=== PATIENT | male | born 1975 | race Caucasian/White ===

== ENCOUNTER → 2016-11-15 | Outpatient (CLI) | payer MEDICAID ==
--- NOTE | 2016-11-15 12:11 | XCELERA REPORT ---
[address] [address] Lower Extremity Venous Evaluation Name: EVELYN DAVIS Age: 41 yrs Gender: Male : 1975 Patient Status: Outpatient Patient Location: Study Date: 11/15/2016 09:13 AM Procedure: Color flow and duplex imaging of the veins of the right lower extremity as well as the left Common Femoral vein. Reason For Study: RLE PAIN Ordering Physician: BRIAN RAY Performed By: Priscilla Steiner Right Sided Venous Evaluation Normal vessel filling wall to wall, compression and augmentation as well as Colour flow down to the infrageniculate veins. Left Sided Venous Evaluation The left common femoral vein is fully compressible. Spontaneous and phasic flow is present in the left common femoral vein. Interpretation Summary No duplex evidence of DVT or obstruction in the right lower extremity nor in the left Common Femoral vein. : BRIAN RAY > Dada Haque
== END ==
LOC: SP 09:08
PROVIDERS: ATTEND Physician Assistant
DX: M79.661 Pain in right lower leg (principal)
CPT/HCPCS: 93971

== ENCOUNTER → 2017-04-20 | Outpatient (CLI) | payer MEDICAID ==
[2017-04-20 12:54] LABS: ABSOLUTE BASOPHILS # (AUTO) 0.1 10^3/uL (0.0-0.2); ABSOLUTE LYMPHOCYTES (AUTO) 2.4 10^3/uL (0.5-4.7); ABSOLUTE MONOCYTES (AUTO) 0.7 10^3/uL (0.1-1.4); ABSOLUTE NEUT (AUTO) 9.7 10^3/uL (1.7-8.2); BASOPHILS % (AUTO) 0.5 % (0-2); EOSINOPHILS % (AUTO) 0.2 % (0-6); HEMATOCRIT 40.2 % (37.9-51.0); HEMOGLOBIN 13.7 g/dL (13.5-17.0); HGB HCT DIFFERENCE 0.9; LYMPHOCYTES % (AUTO) 18.6 % (13-45); MEAN CORPUSCULAR HEMOGLOBIN 29.2 pg (27.0-33.4); MEAN CORPUSCULAR HGB CONC 34.1 g/dL (32.0-36.0); MEAN CORPUSCULAR VOLUME 86 fl (80-97); MONOCYTES % (AUTO) 5.2 % (3-13); RED CELL DISTRIBUTION WIDTH 13.6 % (11.5-14.0); SEGMENTED NEUTROPHILS % (AUTO) 75.5 % (42-78); WHITE BLOOD COUNT 12.9 10^3/uL (4.0-10.5)
[2017-04-20 13:08] LABS: ALANINE AMINOTRANSFERASE 35 U/L (21-72); ALBUMIN 4.4 g/dL (3.5-5.0); ALKALINE PHOSPHATASE 81 U/L (38-126); ANION GAP 13 (5-19); ASPARTATE AMINO TRANSFERASE 24 U/L (17-59); BILIRUBIN,DIRECT 0.4 mg/dL (0.0-0.4); BILIRUBIN,TOTAL 0.6 mg/dL (0.2-1.3); BLOOD UREA NITROGEN 11 mg/dL (7-20); CALCIUM 9.7 mg/dL (8.4-10.2); CARBON DIOXIDE 24 mmol/L (22-30); CHLORIDE 103 mmol/L (98-107); CREATININE RESULT 0.96 mg/dL (0.52-1.25); GLUCOSE 124 mg/dL (75-110); POTASSIUM 4.2 mmol/L (3.6-5.0); SODIUM 139.6 mmol/L (137-145); TOTAL PROTEIN 7.6 g/dL (6.3-8.2); URIC ACID 5.8 mg/dL (3.5-8.5)
[2017-04-20 13:11] LABS: C-REACTIVE PROTEIN < 5.0 mg/L (<10.0)
[2017-04-20 13:30] LABS: ERYTHROCYTE SEDIMENTATION RATE 15 mm/hr (0-15)
== END ==
LOC: LAB 12:14
PROVIDERS: ATTEND Physician Assistant
DX: M17.11 Unilateral primary osteoarthritis, right knee (principal); M25.561 Pain in right knee
CPT/HCPCS: 36415; 80053; 84550; 85025; 85652; 86038; 86140; 86430

== ENCOUNTER → 2017-05-01 | Outpatient (CLI) | payer MEDICAID ==
--- NOTE | 2017-05-01 13:11 | RADIOLOGY REPORT (SQ) ---
EXAM DESCRIPTION: MRI LUMBAR SPINE WITHOUT COMPLETED DATE/TIME: 05/01/2017 9:31 am REASON FOR STUDY: OTHER INTERVERTEBRAL DISC DEGENERATION, LUMBAR REGION M51.36 OTHER INTERVERTEBRAL DISC DEGENERATION, LUMBAR REGION COMPARISON: None. TECHNIQUE: Sagittal and Axial imaging includes T1, T2, STIR and gradient echo sequences. Coronal T2/ HASTE imaging. LIMITATIONS: None. FINDINGS: VISUALIZED UPPER ABDOMEN: Limited evaluation. No acute or suspicious findings suggested. SEGMENTATION: No transitional anatomy. The lowest well-developed disc space is labeled L5-S1. ALIGNMENT: Anatomic. VERTEBRAE: Intact. BONE MARROW: Normal. No marrow replacement or reactive changes. Benign hemangioma in the T11 vertebr al body DISC SIGNAL: Decreased T2 weighted intervertebral disc signal with disc space loss of height at L1-2. POSTERIOR ELEMENTS: Post fusion at L1-2 with bilateral laminectomies HARDWARE: Post fusion at L1-2 bilateral laminectomies, transpedicular screws and dorsal fixation plat es CORD AND CONUS: Normal in size and signal intensity. Conus at the L1-2 level. SOFT TISSUES: No aortic aneurysm seen. No bulky retroperitoneal adenopathy or mass. No paraspinal mas s or fluid. T11-12: At the upper edge of the field of view. Mild bilateral facet hypertrophy without significan t foraminal narrowing. No central stenosis T12-L1: Mild bilateral facet hypertrophy without significant foraminal narrowing. No central stenos is. L1-L2: Post bilateral laminectomy with transpedicular screws at L1. No central or foraminal encroach ment L2-L3: Bilateral transpedicular screws. Very mild bilateral facet hypertrophy. No central or forami nal encroachment. L3-L4: Moderate bilateral facet hypertrophy. Minimal posterior disc bulging. No central or foramina l encroachment. L4-L5: Moderate bilateral facet hypertrophy. Mild posterior disc bulge. No central or foraminal enc roachment. L5-S1: No central or foraminal encroachment. Very mild bilateral facet hypertrophy. SACRUM: Visualized upper sacrum intact. OTHER: No other significant findings. IMPRESSION: No significant central or foraminal stenosis. Prior surgery at L1-2. TECHNICAL DOCUMENTATION: JOB ID: [id number]- All Rights Reserved
== END ==
LOC: RAD 08:44
PROVIDERS: ATTEND Physician Assistant
DX: M51.36 Other intervertebral disc degeneration, lumbar region (principal)
CPT/HCPCS: 72148

== ENCOUNTER → 2017-05-26 | Outpatient (CLI) | payer MEDICAID ==
--- NOTE | 2017-05-26 11:16 | RADIOLOGY REPORT (SQ) ---
EXAM DESCRIPTION: MRI RT LOWER JOINT WITHOUT COMPLETED DATE/TIME: 05/26/2017 10:27 am REASON FOR STUDY: UNSPEC INTERNAL DERANGEMENT OF RIGHT KNEE (M23.91) M23.91 UNSPECIFIED INTERNAL DE RANGEMENT OF RIGHT KNEE COMPARISON: MRI right knee 12/17/2012 TECHNIQUE: Rightknee images acquired and stored on PACS. Multiplanar images include fat sensitive s equences as T1, water sensitive sequences as FST2 or STIR, cartilage sensitive sequences as FSPD, and gradient echo sequences. LIMITATIONS: Ferromagnetic artifact from prior ACL repair FINDINGS: JOINT AND BURSAE: Small suprapatellar knee joint effusion BONE CORTEX AND MARROW: No alteration of signal to suggest marrow replacement. No worrisome bone lesi ons. No occult fracture. ACL: Patient has an ACL repair which appears intact on the coronal images. Difficult to visualize on the sagittal images to ferromagnetic artifact. PCL: Intact, best shown on the coronal images MCL: Intact. No periligamentous edema or fluid. LCL: Intact. No periligamentous edema or fluid. MEDIAL MENISCUS: Diffusely tiny. Thin remnant of medial meniscus is seen, without parameniscal cyst. LATERAL MENISCUS: No tears. No abnormal signal. MEDIAL COMPARTMENT: Focal chondromalacia posterior weight-bearing surface medial femoral condyle, cor onal image 20. Mild subcortical edema. LATERAL COMPARTMENT: Cartilage preserved. No bone bruises or reactive marrow edema. No osteophytes. PATELLA: No chondromalacia. No subchondral cysts. Medial and lateral retinacula intact. EXTENSOR MECHANISM: Quadriceps tendon unremarkable. Prior tendon harvest for ACL graft along the pat ellar tendon. SOFT TISSUES: Adjacent muscles and subcutaneous tissues normal. Normal flow void in popliteal artery and vein. OTHER: No other significant finding. IMPRESSION: Trace joint effusion. Intact ACL reconstruction Chondromalacia weight-bearing surface medial femoral condyles Post trimming or partial resection of the medial meniscus. Small residua of the medial meniscus is p resent without parameniscal cyst TECHNICAL DOCUMENTATION: JOB ID: [id number] [employer]- All Rights Reserved
== END ==
LOC: RAD 09:17
PROVIDERS: ATTEND Physician Assistant
DX: M23.91 Unspecified internal derangement of right knee (principal)

== ENCOUNTER → 2018-03-21 | Outpatient (CLI) | payer MEDICAID, MEDICARE ==
--- NOTE | 2018-03-21 12:31 | RADIOLOGY REPORT (SQ) ---
EXAM DESCRIPTION: U/S ABDOMEN COMPLETE W/O DOP COMPLETED DATE/TIME: 03/21/2018 11:02 am REASON FOR STUDY: UPPER ABD PAIN (R10.10) R10.10 UPPER ABDOMINAL PAIN, UNSPECIFIED COMPARISON: None. TECHNIQUE: Dynamic and static grayscale images acquired of the abdomen and recorded on PACS. Juanio nal selected color Doppler and spectral images recorded. LIMITATIONS: Study limited due to acoustical interference from fat or from air in the bowel. FINDINGS: PANCREAS: Poorly seen secondary to acoustical interference from fat or from air in the bow el. No visualized masses. Duct normal caliber as seen. LIVER: Echotexture is coarse with increased echogenicity consistent with fatty infiltration. LIVER VASCULATURE: Normal directional flow of the main portal vein and hepatic veins. GALLBLADDER: No stones. Normal wall thickness. No pericholecystic fluid. ULTRASOUND-DETECTED FIERRO'S SIGN: Negative. INTRAHEPATIC DUCTS AND COMMON DUCT: CBD and intrahepatic ducts normal caliber. No filling defects. INFERIOR VENA CAVA: Normal flow. AORTA: No aneurysm. RIGHT KIDNEY: Normal size. Normal echogenicity. No solid or suspicious masses. No hydronephrosis. No calcifications. LEFT KIDNEY: Normal size. Normal echogenicity. No solid or suspicious masses. No hydronephrosis. No calcifications. SPLEEN:Normal size. No solid masses. PERITONEAL AND PLEURAL SPACES: No ascites or effusions. OTHER: No other significant finding. IMPRESSION: FATTY INFILTRATION OF THE LIVER. NO OTHER SIGNIFICANT FINDING IN THE VISUALIZED ABDOMEN. TECHNICAL DOCUMENTATION: JOB ID: [id number] [employer]- All Rights Reserved Reading location - IP/workstation name: [email or web address]
== END ==
LOC: RAD 10:14
PROVIDERS: ATTEND Family Medicine
DX: R10.10 Upper abdominal pain, unspecified (principal); K76.0 Fatty (change of) liver, not elsewhere classified
CPT/HCPCS: 76700

== ENCOUNTER 2018-03-29 09:21 | Observation (INO) | payer MEDICARE ==
[~2018-03-29 09:21] MED LIST: RINGERS SOLUTION,LACTATED 1,000 ML IV PRN; VANCOMYCIN HCL 1,000 MG in DEXTROSE 5%-WATER 250 ML IV PRN
[2018-03-29 10:01] LABS: HEMATOCRIT 44.5 % (37.9-51.0); HEMOGLOBIN 15.1 g/dL (13.5-17.0); MEAN CORPUSCULAR HEMOGLOBIN 29.2 pg (27.0-33.4); MEAN CORPUSCULAR HGB CONC 33.9 g/dL (32.0-36.0); MEAN CORPUSCULAR VOLUME 86 fl (80-97); PLATELET COUNT 263 10^3/uL (150-450); RED BLOOD COUNT 5.16 10^6/uL (4.35-5.55); RED CELL DISTRIBUTION WIDTH 13.9 % (11.5-14.0); WHITE BLOOD COUNT 9.2 10^3/uL (4.0-10.5)
--- NOTE | 2018-03-29 10:15 | RADIOLOGY REPORT (SQ) ---
EXAM DESCRIPTION: CHEST SINGLE VIEW COMPLETED DATE/TIME: 03/29/2018 9:49 am REASON FOR STUDY: PREOP COMPARISON: Chest films 02/19/2013 EXAM PARAMETERS: NUMBER OF VIEWS: One view. TECHNIQUE: Single frontal radiographic view of the chest acquired. RADIATION DOSE: NA LIMITATIONS: None. FINDINGS: LUNGS AND PLEURA: No opacities, masses or pneumothorax. No pleural effusion. MEDIASTINUM AND HILAR STRUCTURES: No masses. Contour normal. HEART AND VASCULAR STRUCTURES: Heart normal in size. Normal vasculature. BONES: No acute findings. HARDWARE: None in the chest. OTHER: No other significant finding. IMPRESSION: NO ACUTE RADIOGRAPHIC FINDING IN THE CHEST. TECHNICAL DOCUMENTATION: JOB ID: [id number] [employer]- All Rights Reserved Reading location - IP/workstation name: [email or web address]
[2018-03-29 10:27] LABS: ANION GAP 10 (5-19); BLOOD UREA NITROGEN 9 mg/dL (7-20); CALCIUM 9.4 mg/dL (8.4-10.2); CARBON DIOXIDE 31 mmol/L (22-30); CHLORIDE 103 mmol/L (98-107); GLUCOSE 95 mg/dL (75-110); POTASSIUM 4.4 mmol/L (3.6-5.0); SODIUM 144.3 mmol/L (137-145)
[2018-03-29] MEDS ORDERED: FENTANYL CITRATE INJ/PF 250 MCG/5 ML AMPULE ONE (10:50)
[2018-03-29] MEDS ORDERED: MIDAZOLAM 2 MG/2 ML INJ ONE ×2 (10:50→15:17)
[2018-03-29] MEDS ORDERED: PROPOFOL INJ 200 MG/20 ML VIAL IV ONE (10:50)
[2018-03-29] MEDS ORDERED: HYDROMORPHONE HCL INJ/PF 2 MG/ML AMPULE ONE (10:50)
[2018-03-29] MEDS ORDERED: ACETAMINOPHEN 1,000 MG/100 ML RTUPB IV ONE (10:50)
[2018-03-29] MEDS ORDERED: BUPIVACAINE HCL 0.25 % INJ/PF (2.5 MG/1 ML) 30 ML VIAL ONE (11:03)
[2018-03-29] MEDS ORDERED: MORPHINE SULFATE 10 MG/ML INJ IV PRN (13:03)
[2018-03-29] MEDS ORDERED: PROMETHAZINE HCL INJ 25 MG/1 ML VIAL IV PRN ×2 (13:03)
[2018-03-29] MEDS ORDERED: MEPERIDINE HCL/PF INJ 25 MG/1 ML DISP.SYRIN IV PRN (13:03)
[2018-03-29] MEDS ORDERED: FENTANYL CITRATE INJ/PF 100 MCG/2 ML AMPUL IV PRN ×3 (13:03)
[2018-03-29] MEDS ORDERED: DIPHENHYDRAMINE HCL 50 MG/ML VIAL IV PRN (13:03)
[2018-03-29] MEDS ORDERED: ONDANSETRON HCL INJ/PF 4 MG/2 ML SDV IV PRN (14:53)
[2018-03-29] MEDS: FENTANYL CITRATE INJ/PF 100 MCG/2 ML AMPUL ONE ×2 (15:00→15:09)
[2018-03-29] MEDS ORDERED: POTASSI CL 20 MEQ/1/2NS 1L 20 MEQ/1,000 ML RTUINJ IV PRN (15:01)
[2018-03-29] MEDS ORDERED: HYDROMORPHONE HCL INJ/PF 2 MG/ML AMPULE IV PRN (15:02)
[2018-03-29] MEDS ORDERED: OXYCODONE-ACETAMINOPHEN 5-325 MG TABLET PO PRN ×2 (15:03→22:30)
[2018-03-29] MEDS ORDERED: KETOROLAC TROMETHAMINE 60 MG/2 ML SDV ONE (15:06)
[2018-03-29] MEDS ORDERED: DEXAMETHASONE SOD PHOSPHATE INJ 4 MG/1 ML VIAL ONE (15:06)
[2018-03-29] MEDS ORDERED: ROCURONIUM BROMIDE INJ 50 MG/5 ML VIAL IV ONE (15:06)
[2018-03-29] MEDS ORDERED: SUCCINYLCHOLINE CHLORIDE INJ 200 MG/10 ML VIAL ONE (15:06)
[2018-03-29] MEDS ORDERED: ONDANSETRON HCL INJ/PF 4 MG/2 ML SDV ONE (15:06)
[2018-03-29] MEDS: MORPHINE SULFATE 10 MG/ML INJ ONE ×2 (15:18→16:00)
[2018-03-29] MEDS ORDERED: OXYCODONE-ACETAMINOPHEN 5-325 MG TABLET ONE (15:59)
[2018-03-29] MEDS ORDERED: OXYCODONE HCL IR 5 MG TABLET ONE (16:03)
[2018-03-29] MEDS ORDERED: OXYCODONE HCL IR 5 MG TABLET PO ONE (16:30)
[2018-03-29] MEDS: MORPHINE SULFATE 10 MG/ML INJ IV PRN ×2 (17:39→22:17)
[2018-03-29] MEDS: PANTOPRAZOLE SODIUM 40 MG VIAL IV SCH (18:17)
[2018-03-29] MEDS: PROPRANOLOL HCL 40 MG TABLET PO SCH ×2 (18:17→22:18)
[2018-03-29] MEDS: GABAPENTIN 400 MG CAPSULE PO SCH (18:38)
[2018-03-29] MEDS: METFORMIN HCL 500 MG TABLET PO SCH (18:38)
[2018-03-29] MEDS: DOXAZOSIN MESYLATE 2 MG TABLET PO SCH (22:17)
[2018-03-30] MEDS: OXYCODONE-ACETAMINOPHEN 5-325 MG TABLET PO PRN ×5 (00:21→22:05)
[2018-03-30] MEDS: OXYCODONE HCL IR 5 MG TABLET PO PRN ×5 (00:22→22:04)
[2018-03-30] MEDS: MORPHINE SULFATE 10 MG/ML INJ IV PRN ×7 (02:51→20:47)
[2018-03-30] MEDS: PROPRANOLOL HCL 40 MG TABLET PO SCH ×3 (06:48→22:05)
[2018-03-30 07:24] LABS: ABSOLUTE LYMPHOCYTES (AUTO) 2.1 10^3/uL (0.5-4.7); ABSOLUTE MONOCYTES (AUTO) 1.4 10^3/uL (0.1-1.4); ABSOLUTE NEUT (AUTO) 13.7 10^3/uL (1.7-8.2); BASOPHILS % (AUTO) 0.1 % (0-2); EOSINOPHILS % (AUTO) 0.1 % (0-6); HEMATOCRIT 41.5 % (37.9-51.0); LYMPHOCYTES % (AUTO) 12.1 % (13-45); MEAN CORPUSCULAR HEMOGLOBIN 29.1 pg (27.0-33.4); MEAN CORPUSCULAR HGB CONC 33.8 g/dL (32.0-36.0); MEAN CORPUSCULAR VOLUME 86 fl (80-97); MONOCYTES % (AUTO) 8.2 % (3-13); PLATELET COUNT 283 10^3/uL (150-450); RED BLOOD COUNT 4.82 10^6/uL (4.35-5.55); RED CELL DISTRIBUTION WIDTH 13.9 % (11.5-14.0); SEGMENTED NEUTROPHILS % (AUTO) 79.5 % (42-78); TOTAL CELLS COUNTED % (AUTO) 100 %; WHITE BLOOD COUNT 17.2 10^3/uL (4.0-10.5)
--- NOTE | 2018-03-30 07:39 | PDOC PROGRESS REPORT ---
Subjective Progress Note for:: 03/30/18 Reason For Visit: K44.9 DIAPHRAGMATIC HERNIA WITHOUT OBSTRUCTION OR Physical Exam Vital Signs: Temp Pulse Resp BP Pulse Ox 98.4 F 81 18 121/71 92 03/30/18 03:36 03/30/18 03:36 03/30/18 03:36 03/30/18 03:36 03/30/18 03:36 Intake & Output 03/29/18 03/30/18 03/31/18 06:59 06:59 06:59 Intake Total 900 Output Total 950 Balance -50 Weight 122.47 kg 126.2 kg Results Laboratory Results: 03/30/18 06:48 03/29/18 03/29/18 03/30/18 09:47 09:47 06:48 WBC 9.2 17.2 H RBC 5.16 4.82 Hgb 15.1 14.0 Hct 44.5 41.5 MCV 86 86 MCH 29.2 29.1 MCHC 33.9 33.8 RDW 13.9 13.9 Plt Count 263 283 Seg Neutrophils % 79.5 H Lymphocytes % 12.1 L Monocytes % 8.2 Eosinophils % 0.1 Basophils % 0.1 Absolute Neutrophils 13.7 H Absolute Lymphocytes 2.1 Absolute Monocytes 1.4 Absolute Eosinophils 0.0 Absolute Basophils 0.0 Sodium 144.3 Potassium 4.4 Chloride 103 Carbon Dioxide 31 H Anion Gap 10 BUN 9 Creatinine 0.94 Est GFR ( Amer) > 60 Est GFR (Non-Af Amer) > 60 Glucose 95 Calcium 9.4 Impressions: Chest X-Ray 03/29/18 00:00 IMPRESSION: NO ACUTE RADIOGRAPHIC FINDING IN THE CHEST. Assessment & Plan - Diagnosis (1) Hiatal hernia with gastroesophageal reflux disease and esophagitis Is this a current diagnosis for this admission?: Yes - Plan Summary Plan Summary: This is a 42-year-old male status post robotic assisted laparoscopic hiatal hernia repair with Toupet fundoplication. The patient is doing well today. He is swallowing without difficulty. He denies nausea or vomiting. Patient does report pain in his back and abdomen. I have discussed with the patient that he will have a higher degree of pain due to his dependence on opioids at home. I will increase the frequency of his morphine. I have encouraged him to ambulate in the hallways. Advance to full liquids today. No carbonated beverages. Home when pain is controlled. Labs pending.
[2018-03-30 07:46] LABS: ALANINE AMINOTRANSFERASE 125 U/L (21-72); ALKALINE PHOSPHATASE 64 U/L (38-126); ANION GAP 13 (5-19); ASPARTATE AMINO TRANSFERASE 138 U/L (17-59); BILIRUBIN,DIRECT 0.3 mg/dL (0.0-0.4); BILIRUBIN,TOTAL 0.9 mg/dL (0.2-1.3); BLOOD UREA NITROGEN 10 mg/dL (7-20); CARBON DIOXIDE 26 mmol/L (22-30); CHLORIDE 101 mmol/L (98-107); GLUCOSE 108 mg/dL (75-110); POTASSIUM 4.7 mmol/L (3.6-5.0); SODIUM 140.1 mmol/L (137-145); TOTAL PROTEIN 6.8 g/dL (6.3-8.2)
[2018-03-30] MEDS ORDERED: (PENDING PHARMACY ID) (Prazosin Hcl [Prazosin Hcl] 2 MG) PO SCH (10:00)
[2018-03-30] MEDS ORDERED: (PENDING PHARMACY ID) (Ranitidine Hcl [Zantac 150 Mg Tablet] 300 MG) PO SCH (10:00)
[2018-03-30] MEDS: PANTOPRAZOLE SODIUM 40 MG VIAL IV SCH (10:25)
[2018-03-30] MEDS: FLUOXETINE HCL 20 MG CAPSULE PO SCH (10:26)
[2018-03-30] MEDS: METFORMIN HCL 500 MG TABLET PO SCH ×2 (10:26→17:43)
[2018-03-30] MEDS: DOXAZOSIN MESYLATE 2 MG TABLET PO SCH ×2 (10:26→22:10)
[2018-03-30] MEDS: DOCUSATE SODIUM 100 MG CAPSULE PO SCH ×2 (10:26→17:43)
[2018-03-30] MEDS: GABAPENTIN 400 MG CAPSULE PO SCH ×3 (10:27→17:43)
--- NOTE | 2018-03-30 11:48 | RADIOLOGY REPORT (SQ) ---
EXAM DESCRIPTION: CHEST SINGLE VIEW COMPLETED DATE/TIME: 03/30/2018 9:31 am REASON FOR STUDY: dyspnea COMPARISON: 03/29/2018 EXAM PARAMETERS: NUMBER OF VIEWS: One view. TECHNIQUE: Single frontal radiographic view of the chest acquired. RADIATION DOSE: NA LIMITATIONS: None. FINDINGS: LUNGS AND PLEURA: Lower lung volumes. There appears to be some retrocardiac opacification not seen on the earlier image. MEDIASTINUM AND HILAR STRUCTURES: No masses. Contour normal. HEART AND VASCULAR STRUCTURES: Heart normal in size. Normal vasculature. BONES: No acute findings. HARDWARE: None in the chest. OTHER: No other significant finding. IMPRESSION: There appears to be a limited left lower lobe pneumonia. TECHNICAL DOCUMENTATION: JOB ID: [id number] [employer]- All Rights Reserved Reading location - IP/workstation name: [email or web address]
[2018-03-31] MEDS: OXYCODONE HCL IR 5 MG TABLET PO PRN ×2 (03:34→08:13)
[2018-03-31] MEDS: PROPRANOLOL HCL 40 MG TABLET PO SCH (06:41)
[2018-03-31] MEDS: OXYCODONE-ACETAMINOPHEN 5-325 MG TABLET PO PRN (08:14)
--- NOTE | 2018-03-31 09:57 | PDOC DISCHARGE SUMMARY ---
General - Admit/Disc Date/PCP Admission Date/Primary Care Provider: 03/29/18 14:53 TERESE YBARRA MD Discharge Date: 03/31/18 - Discharge Diagnosis (1) Hiatal hernia with gastroesophageal reflux disease and esophagitis Is this a current diagnosis for this admission?: Yes - Additional Information Discharge Diet: Full Liquids, Other (Comments) - no carbonated beverages Discharge Activity: No Lifting Over 10 Pounds - x 6 weeks, No tub bath Home Medications: Atorvastatin Calcium [Lipitor 20 mg Tablet] 20 mg PO QHS 03/29/18 Dextroamphetamine/Amphetamine [Adderall Xr 30 mg Capsule] 30 mg PO DAILY Ergocalciferol (Vitamin D2) [Vitamin D] 400 unit PO DAILY 03/29/18 Fluoxetine HCl [Prozac] 20 mg PO DAILY 03/29/18 Gabapentin 400 mg PO TID 03/29/18 Metformin HCl 500 mg PO BID 03/29/18 Oxycodone HCl/Acetaminophen [Oxycodone-Acetaminophen 10-325] 1 each PO ASDIR 05/08 Prazosin HCl 2 mg PO DAILY 03/29/18 Propranolol HCl 40 mg PO TID 03/29/18 Ranitidine HCl [Zantac] 300 mg PO DAILY 03/29/18 Testosterone 1,000 gm MC 03/29/18 Trazodone HCl 100 mg PO ASDIR PRN 03/29/18 History of Present Illness History of Present Illness: EVELYN DAVIS is a 42 year old male admitted for surgical correction of his hiatal hernia and relief of reflux. Patient underwent a robot-assisted laparoscopic hiatal hernia repair with Toupet fundoplication. The patient was taken to the floor in stable condition. Hospital Course Hospital Course: On postoperative day #1, the patient was having large amounts of pain. This was likely exacerbated by his dependence on narcotic pain medications at home. The patient's pain medications were increased, and his symptoms were relieved. Patient was tolerating full liquids, passing flatus, and ambulating. By postoperative day #2 the patient's pain was much more controlled. At this time , it was felt that he had reached maximal hospital benefit, and was fit for discharge. Physical Exam Vital Signs: Temp Pulse Resp BP Pulse Ox 98.1 F 73 18 93/59 L 92 03/31/18 07:32 03/31/18 07:32 03/31/18 07:32 03/31/18 07:32 03/31/18 07:32 Intake & Output 03/30/18 03/31/18 04/01/18 06:59 06:59 06:59 Intake Total 900 Output Total 950 Balance -50 Weight 126.2 kg 127.3 kg Results Laboratory Results: 03/30/18 06:48 03/30/18 06:48 Impressions: Chest X-Ray 03/30/18 06:00 IMPRESSION: There appears to be a limited left lower lobe pneumonia. Qualifiers - * PATIENT BEING DISCHARGED WITH ANY OF THE FOLLOWING DIAGNOSIS: No Plan Discharge Plan: Discharge home. Diet: Full liquid diet, no carbonated beverages. Activity: No lifting greater than 10 pounds 6 weeks. Okay to shower. Wash incisions with soap and water. No tub baths or swimming 2 weeks. Pain medications will be prescribed per his personal pain management physician. Time Spent: Less than 30 Minutes
--- NOTE | 2018-03-31 10:06 | Operative Report ---
Nonrecallable Operative Report DATE OF SURGERY: 03/29/18 PREOPERATIVE DIAGNOSIS: 1. Hiatal hernia. 2. Refractory reflux. POSTOPERATIVE DIAGNOSIS: Same as above OPERATION: 1. Robot-assisted laparoscopic hiatal hernia repair with mesh. 2. Toupet fundoplication. 3. EGD SURGEON: JERAD ARAIZA ANESTHESIA: GA TISSUE REMOVED OR ALTERED: None COMPLICATIONS: None apparent ESTIMATED BLOOD LOSS: Minimal PROCEDURE: Drains/implants: 7 x 10 cm [employer] hiatal hernia mesh. Procedure in detail: After informed consent was obtained, the patient was brought to the operating room and laid in the supine position. The area of the abdomen was prepped and draped in a normal sterile fashion. An incision was created in the abdominal wall approximately 2 cm superior and lateral to the umbilicus in the left abdomen. Dissection was carried down to the fascia using blunt means. The abdominal fascia was incised sharply. The rectus muscle was spread. The posterior sheath was divided sharply and the abdomen was entered. The balloon trocar was inserted, and pneumoperitoneum was achieved. Next, left upper quadrant and left lateral 8 mm trochars were placed under direct laparoscopic visualization. A right upper quadrant 8 mm trocar and a 5 mm right lateral trocar also placed. The liver retractor was placed into the 5 mm trocar and secured to elevate the left lobe of the liver anteriorly. Next the patient was placed in reverse Trendelenburg position, and the robot was docked. I then assumed my position at the surgeon's console. Attention was then turned to division of the pars flaccida. This was done using electrocautery. Dissection was carried down to the right simon of the diaphragm. The simon was cleaned, revealing the posterior hiatal hernia. Blunt dissection and electrocautery were used to clear the right simon down to the confluence of the right and left crura. The dissection was continued posteriorly and the left simon was identified. Attention was then turned to division of the short gastric arteries. The short gastric arteries were divided using the vessel sealing device along the fundus of the stomach. This was carried from approximately the mid fundus up to the hiatus. Next, electrocautery was used to clean the left simon, and the posterior dissection was completed. Attention was then turned to the anterior dissection. The soft tissue anterior to the esophagus was divided using electrocautery. This was done with great care, so as not to injure the anterior vagus nerve. The Cosmos was passed behind the esophagus for retraction purposes. Dissection was carried up the esophagus approximately 3-4 cm. Next, the 60 [place] bougie was passed through the esophagus and hiatus. It traversed the hiatus easily. It was visualized in the stomach laparoscopically. The posterior crura were then reapproximated using 2-0 Ethibond suture in figure -of-eight fashion. This was done with the 60 [place] bougie in place. The 7 x 10 cm [employer] [employer]-A hiatal hernia mesh was inserted into the abdomen. It was placed over the hiatal hernia repair and sutured to the crura using 2-0 Ethibond suture. It was tacked laterally and anteriorly also using 2-0 Ethibond suture. The fundoplication was then undertaken. The fundus was passed posteriorly around the esophagus, with the bougie still in place. The patient had evidence of esophageal dysmotility, therefore a partial fundoplication was performed. The fundus was brought around the right side of the esophagus and tacked anteriorly, creating a Toupet fundoplication. The fundoplication was sewn using 3-0 Ethibond suture. The fundoplication was started on the esophagus, ensuring that there was at least 2-3 cm of intra- abdominal esophagus present. The stomach was sutured to the esophagus and to itself for 4 consecutive suturings. Once the fundoplication was complete, the fundus was tacked to the hiatal hernia mesh. After this was performed, attention was turned to the EGD. Flexible gastroscope was then inserted into the oropharynx and down the esophagus. The hiatal hernia was visualized. The Z line appeared to reside within the abdominal cavity. The scope passed easily through the hiatus. A retroflexion maneuver was performed in the stomach, confirming an intact fundoplication. There was no evidence of injury or necrosis inside the stomach or esophagus. No tears or holes were identified from the esophagus to the stomach. Once this was completed, air was suctioned from the stomach and the scope was withdrawn up the esophagus. The scope was removed from the patient's oropharynx, and this portion of the procedure was concluded. I then scrubbed back into the case. The robot was undocked, the liver retractor was removed, and attention was turned to closure of the 12 mm defect. The 12 mm supraumbilical defect was closed using the Endo Close device and 0 Vicryl suture. This was done in interrupted fashion 2. Once this was completed the 8 and 5 mm trochars were removed, and pneumoperitoneum was relieved. The overlying skin was then closed using 4-0 Vicryl Rapide suture in subcuticular fashion. Dressings were placed, and the procedure was concluded. All sponge, instrument, and needle counts were correct 2. Condition: Stable.
[2018-03-31] MEDS: METFORMIN HCL 500 MG TABLET PO SCH (10:57)
[2018-03-31] MEDS: FLUOXETINE HCL 20 MG CAPSULE PO SCH (10:57)
[2018-03-31] MEDS: GABAPENTIN 400 MG CAPSULE PO SCH (10:57)
[2018-03-31] MEDS: DOXAZOSIN MESYLATE 2 MG TABLET PO SCH (10:57)
[2018-03-31] MEDS: PANTOPRAZOLE SODIUM 40 MG VIAL IV SCH (10:57)
[2018-03-31] MEDS: DOCUSATE SODIUM 100 MG CAPSULE PO SCH (10:57)
[2018-03-31 11:17] VITALS: BP 130/70
== END 2018-03-31 11:40 | disposition home or self-care (01) ==
LOC: OROUT 09:21 → UNDOADMOB 14:53 → 2N 14:53 → OROUT 16:57
PROVIDERS: ADMIT Surgery; ATTEND Surgery
PROC: 8E0W4CZ Robotic Assisted Procedure of Trunk Region, Percutaneous Endoscopic Approach (ICD-10-PCS; 2018-03-29)
PROC: 0DV44ZZ Restriction of Esophagogastric Junction, Percutaneous Endoscopic Approach (ICD-10-PCS; 2018-03-29)
PROC: 0BUT4JZ Supplement Diaphragm with Synthetic Substitute, Percutaneous Endoscopic Approach (ICD-10-PCS; principal; 2018-03-29 11:30)
DX: K44.9 Diaphragmatic hernia without obstruction or gangrene (principal); K21.0 Gastro-esophageal reflux disease with esophagitis; G89.18 Other acute postprocedural pain; F11.20 Opioid dependence, uncomplicated; G89.29 Other chronic pain; E66.3 Overweight; E11.9 Type 2 diabetes mellitus without complications; I10 Essential (primary) hypertension; E63.0 Essential fatty acid [EFA] deficiency; M54.9 Dorsalgia, unspecified; Z68.41 Body mass index [BMI] 40.0-44.9, adult; Z98.890 Other specified postprocedural states; Z79.899 Other long term (current) drug therapy; Z79.84 Long term (current) use of oral hypoglycemic drugs
CPT/HCPCS: 36415 ×2; 85025; 85027; 80048; 80053; 71045 ×2; 94799; 43282; G0378 ×3; C1781; J2250; A9270 ×22; J3490; J1100; J1885; J3010 ×2; J2270 ×2; J1170; C9113 ×2; J0330; J2405; J7060; J2704; J3370; J0131; 790; S0164

== ENCOUNTER → 2018-06-14 | Outpatient (CLI) | payer MEDICARE ==
[2018-06-14 14:28] LABS: ABSOLUTE BASOPHILS # (AUTO) 0.1 10^3/uL (0.0-0.2); ABSOLUTE EOSINOPHILS # (AUTO) 0.2 10^3/uL (0.0-0.6); ABSOLUTE LYMPHOCYTES (AUTO) 2.8 10^3/uL (0.5-4.7); ABSOLUTE MONOCYTES (AUTO) 0.7 10^3/uL (0.1-1.4); BASOPHILS % (AUTO) 1.3 % (0-2); EOSINOPHILS % (AUTO) 2.3 % (0-6); HEMATOCRIT 44.9 % (37.9-51.0); HEMOGLOBIN 15.3 g/dL (13.5-17.0); LYMPHOCYTES % (AUTO) 35.2 % (13-45); MEAN CORPUSCULAR HEMOGLOBIN 28.6 pg (27.0-33.4); MEAN CORPUSCULAR HGB CONC 34.1 g/dL (32.0-36.0); MEAN CORPUSCULAR VOLUME 84 fl (80-97); MONOCYTES % (AUTO) 9.5 % (3-13); PLATELET COUNT 272 10^3/uL (150-450); RED BLOOD COUNT 5.36 10^6/uL (4.35-5.55); RED CELL DISTRIBUTION WIDTH 14.1 % (11.5-14.0); SEGMENTED NEUTROPHILS % (AUTO) 51.7 % (42-78); TOTAL CELLS COUNTED % (AUTO) 100 %; WHITE BLOOD COUNT 7.8 10^3/uL (4.0-10.5)
[2018-06-14 14:48] LABS: ALANINE AMINOTRANSFERASE 19 U/L (21-72); ALBUMIN 4.6 g/dL (3.5-5.0); ALKALINE PHOSPHATASE 64 U/L (38-126); ANION GAP 15 (5-19); ASPARTATE AMINO TRANSFERASE 25 U/L (17-59); BILIRUBIN,DIRECT 0.2 mg/dL (0.0-0.4); BILIRUBIN,TOTAL 0.6 mg/dL (0.2-1.3); BLOOD UREA NITROGEN 12 mg/dL (7-20); CALCIUM 9.3 mg/dL (8.4-10.2); CARBON DIOXIDE 29 mmol/L (22-30); CHLORIDE 99 mmol/L (98-107); GLUCOSE 81 mg/dL (75-110); POTASSIUM 4.3 mmol/L (3.6-5.0); SODIUM 142.6 mmol/L (137-145); TOTAL PROTEIN 7.8 g/dL (6.3-8.2); URIC ACID 7.2 mg/dL (3.5-8.5)
[2018-06-14 14:52] LABS: C-REACTIVE PROTEIN < 5.0 mg/L (<10.0)
[2018-06-14 15:04] LABS: ERYTHROCYTE SEDIMENTATION RATE 9 mm/hr (0-15)
[2018-06-16 17:17] LABS: LYME DISEASE IGM AB <0.80 index (0.00-0.79); ROCKY MTN SPOTTED FEVER IGM AB 0.36 index (0.00-0.89)
[2018-06-18 15:38] LABS: ROCKY MTN SPOTTED FEV IGG EIA Positive (Negative)
== END ==
LOC: OD 13:26
PROVIDERS: ATTEND Physician Assistant
DX: M25.50 Pain in unspecified joint (principal); R60.9 Edema, unspecified
CPT/HCPCS: 36415; 80053; 84550; 85025; 85652; 86038; 86140; 86430; 86617; 86618; 86757

== ENCOUNTER → 2018-12-19 | Outpatient (CLI) | payer MEDICARE ==
--- NOTE | 2018-12-19 12:01 | RADIOLOGY REPORT (SQ) ---
EXAM DESCRIPTION: MRI LUMBAR SPINE WITHOUT COMPLETED DATE/TIME: 12/19/2018 8:24 am REASON FOR STUDY: LOW BACK PAIN (M54.5) M54.5 LOW BACK PAIN COMPARISON: Lumbar spine plain films 12/13/2018 MRI lumbar spine 05/01/2017 TECHNIQUE: Sagittal and Axial imaging includes T1, T2, STIR and gradient echo sequences. Coronal T2/ HASTE imaging. LIMITATIONS: None. FINDINGS: VISUALIZED UPPER ABDOMEN: Limited evaluation. No acute or suspicious findings suggested. SEGMENTATION: No transitional anatomy. The lowest well-developed disc space is labeled L5-S1. ALIGNMENT: Anatomic. VERTEBRAE: Intact. BONE MARROW: Normal. No marrow replacement or reactive changes. Benign hemangioma in the T11 vertebr al body. Benign bony sclerosis anterior inferior corner of L1 DISC SIGNAL: Decreased T2 weighted intervertebral disc signal with disc space loss of height at L1-2 POSTERIOR ELEMENTS: Old bilateral laminectomy defect at L1 HARDWARE: Bilateral transpedicular screws with dorsal fixation plates at L1 and L2. CORD AND CONUS: Normal in size and signal intensity. Conus at the L1-2 level. SOFT TISSUES: No aortic aneurysm seen. No bulky retroperitoneal adenopathy or mass. No paraspinal mas s or fluid. T11-12: Mild bilateral facet hypertrophy. Mild bilateral foraminal narrowing. No central stenosis. T12-L1: Mild bilateral facet hypertrophy. No central or foraminal stenosis L1-L2: Old bilateral laminectomy. Mild right facet hypertrophy. No central or foraminal stenosis L2-L3: Bilateral transpedicular L2 screws. Minimal facet hypertrophy. No central or foraminal encro achment. L3-L4: Minimal posterior disc bulging, mild bilateral facet hypertrophy. No central or foraminal enc roachment. L4-L5: Broad diffuse posterior disc bulge and moderate bilateral facet and ligament hypertrophy are p resent. No central stenosis. Very mild bilateral inferior foraminal narrowing without exit L4 nerve root impingement L5-S1: Minimal posterior disc bulging, mild bilateral facet and ligament hypertrophy. No central or foraminal encroachment SACRUM: Visualized upper sacrum intact. OTHER: No other significant findings. IMPRESSION: Postsurgical changes at the L1-2 level with intact fusion hardware, no central or forami nal stenosis at this level. Mild multilevel facet arthropathy without significant central or foraminal encroachment TECHNICAL DOCUMENTATION: JOB ID: [id number]- All Rights Reserved Reading location - IP/workstation name: [email or web address]
== END ==
LOC: RAD 07:27
PROVIDERS: ATTEND Physician Assistant
DX: M54.5 Low back pain (principal)
CPT/HCPCS: 72148